=== PATIENT | male | born 1945 | race Caucasian/White ===

== ENCOUNTER 2019-02-07 00:08 | Emergency (ER) | payer MEDICARE ==
[2019-02-07] MEDS ORDERED: Fluorescein Opthalmic Strip ONE (00:23)
[2019-02-07] MEDS ORDERED: Gentamicin Ophth Soln 0.3% 5 ml Bottle ONE (00:33)
== END 2019-02-07 00:44 | disposition home or self-care (01) ==
LOC: BURERS 00:08
DX: S05.01XA Injury of conjunctiva and corneal abrasion without foreign body, right eye, initial encounter (principal); I10 Essential (primary) hypertension; W22.8XXA Striking against or struck by other objects, initial encounter
CPT/HCPCS: 99283

== ENCOUNTER 2019-03-06 11:27 | Emergency (ER) | payer MEDICARE | END 2019-03-06 12:00 | disposition home or self-care (01) | LOC: BURERS 11:27 | DX: S61.210D Laceration without foreign body of right index finger without damage to nail, subsequent encounter (principal); I10 Essential (primary) hypertension ==